=== PATIENT | female | born 1975 | race Caucasian/White ===

== ENCOUNTER 2022-05-06 03:30 | Emergency (ER) | payer OTHER ==
[~2022-05-06] VITALS: Ht 165.1 cm; Wt 74.3 kg
[2022-05-06 04:53] LABS: CLARITY URINE TURBID (CLEAR); COLOR URINE YELLOW (YELLOW); KETONES URINE NEGATIVE (NEGATIVE); LEUKOCYTE ESTERASE URINE 1+ (NEGATIVE); NITRITE URINE NEGATIVE (NEGATIVE); OCCULT BLOOD URINE 2+ (NEGATIVE); PH URINE 6.5 (4.5-8.0); PROTEIN URINE 2+ (NEGATIVE); SPECIFIC GRAVITY URINE 1.016 (1.005-1.030); UROBILINOGEN URINE 0.2 E.U./dL (0.2-1.0)
[2022-05-06] MEDS ORDERED: KETOROLAC 30MG/ML VIAL IV STA (05:32)
[2022-05-06 06:06] LABS: BASOPHILS % 0.8 % (0.0-2.0); EOSINOPHILS % 2.2 % (0.0-5.0); HEMATOCRIT. 29.3 % (36.0-48.0); HEMOGLOBIN. 8.9 g/dL (12.0-16.0); LYMPHOCYTES % 26.6 % (20.0-50.0); MEAN CORPUSCULAR HEMOGLOBIN 21.5 pg (28.0-32.0); MEAN CORPUSCULAR VOLUME 70.9 fL (81.0-99.0); MEAN PLATELET VOLUME 7.2 fl (7.4-10.4); NEUTROPHILS % 62.4 % (40.0-76.0); PLATELET 460 x1000/uL (130-400); RED BLOOD CELL COUNT 4.13 mill/uL (4.2-5.4); RED CELL DISTRIBUTION WIDTH 18.5 % (11.6-14.6)
[2022-05-06 06:12] LABS: CHLORIDE 103 mEq/L (98-107)
[2022-05-06 06:24] LABS: HCG SCREEN NEGATIVE
[2022-05-06 07:09] VITALS: BP 151/83
[2022-05-06] MEDS ORDERED: IBUP-2030 PO (09:02)
== END 2022-05-06 09:41 | disposition home or self-care (01) ==
LOC: ER 03:30
DX: D25.9 Leiomyoma of uterus, unspecified (principal); I12.9 Hypertensive chronic kidney disease with stage 1 through stage 4 chronic kidney disease, or unspecified chronic kidney disease; N18.9 Chronic kidney disease, unspecified; Z90.5 Acquired absence of kidney; Z88.8 Allergy status to other drugs, medicaments and biological substances
CPT/HCPCS: 36415; 74176; 76830; 76856; 80053; 81003; 83690; 84703; 85025; 87077; 87086; 87186; 96374; 99284; J1885

== ENCOUNTER 2022-06-09 22:06 | Emergency (ER) | payer MEDICAID, OTHER ==
[~2022-06-09] VITALS: Ht 165.1 cm; Wt 75.0 kg
[~2022-06-09 22:06] MED LIST: IBUP-2030 PO
[2022-06-09 23:28] LABS: CHLORIDE 109 mEq/L (98-107)
[2022-06-09 23:29] LABS: HCG SCREEN NEGATIVE
[2022-06-09 23:34] LABS: BASOPHILS % 0.5 % (0.0-2.0); EOSINOPHILS % 3.8 % (0.0-5.0); HEMATOCRIT. 26.1 % (36.0-48.0); LYMPHOCYTES % 32.4 % (20.0-50.0); MEAN CORPUSCULAR HEMOGLOBIN 21.2 pg (28.0-32.0); MEAN CORPUSCULAR VOLUME 69.5 fL (81.0-99.0); MEAN PLATELET VOLUME 7.5 fl (7.4-10.4); MONOCYTES % 9.1 % (2.0-8.0); NEUTROPHILS % 54.2 % (40.0-76.0); PLATELET 395 x1000/uL (130-400); RED BLOOD CELL COUNT 3.76 mill/uL (4.2-5.4); RED CELL DISTRIBUTION WIDTH 18.7 % (11.6-14.6)
[2022-06-10 00:19] LABS: PLATELET ESTIMATE NORMAL
[2022-06-10 03:46] VITALS: BP 167/89
[2022-06-10 04:20] LABS: CLARITY URINE CLOUDY (CLEAR); COLOR URINE YELLOW (YELLOW); KETONES URINE NEGATIVE (NEGATIVE); LEUKOCYTE ESTERASE URINE 1+ (NEGATIVE); NITRITE URINE NEGATIVE (NEGATIVE); OCCULT BLOOD URINE 3+ (NEGATIVE); PROTEIN URINE 3+ (NEGATIVE); UROBILINOGEN URINE 0.2 E.U./dL (0.2-1.0)
== END 2022-06-10 04:01 | disposition home or self-care (01) ==
LOC: ER 22:06
DX: K59.00 Constipation, unspecified (principal); N93.8 Other specified abnormal uterine and vaginal bleeding; D25.9 Leiomyoma of uterus, unspecified; I10 Essential (primary) hypertension; Z98.890 Other specified postprocedural states; Z90.5 Acquired absence of kidney; Z88.8 Allergy status to other drugs, medicaments and biological substances
CPT/HCPCS: 36415; 74176; 80053; 81003; 83880; 84703; 85025; 99284

== ENCOUNTER 2022-06-13 06:53 | Inpatient (IN) | payer OTHER ==
[~2022-06-13] VITALS: Ht 165.1 cm; Wt 73.7 kg
[2022-06-13] MEDS ORDERED: MORPHINE SULFATE 4 MG/ML CPJ (NOT FOR IM USE) IV STA (07:36)
[2022-06-13] MEDS ORDERED: KETOROLAC 30MG/ML VIAL IV STA (07:36)
[2022-06-13 08:46] LABS: CHLORIDE 109 mEq/L (98-107)
[2022-06-13 08:47] LABS: BASOPHILS % 0.3 % (0.0-2.0); EOSINOPHILS % 1.4 % (0.0-5.0); HEMATOCRIT. 29.1 % (36.0-48.0); HEMOGLOBIN. 8.6 g/dL (12.0-16.0); INR 0.9; LYMPHOCYTES % 10.6 % (20.0-50.0); MEAN CORPUSCULAR HEMOGLOBIN 20.9 pg (28.0-32.0); MEAN CORPUSCULAR VOLUME 70.3 fL (81.0-99.0); MEAN PLATELET VOLUME 7.8 fl (7.4-10.4); MONOCYTES % 5.2 % (2.0-8.0); NEUTROPHILS % 82.5 % (40.0-76.0); PLATELET 481 x1000/uL (130-400); PROTHROMBIN TIME 9.3 sec (9.6-11.0); RED BLOOD CELL COUNT 4.14 mill/uL (4.2-5.4); RED CELL DISTRIBUTION WIDTH 19.3 % (11.6-14.6)
[2022-06-13 08:50] LABS: CLARITY URINE CLEAR (CLEAR); COLOR URINE YELLOW (YELLOW); KETONES URINE TRACE (NEGATIVE); LEUKOCYTE ESTERASE URINE NEGATIVE (NEGATIVE); NITRITE URINE NEGATIVE (NEGATIVE); OCCULT BLOOD URINE 3+ (NEGATIVE); PROTEIN URINE 1+ (NEGATIVE); SPECIFIC GRAVITY URINE 1.024 (1.005-1.030); UROBILINOGEN URINE 0.2 E.U./dL (0.2-1.0)
[2022-06-13 09:00] LABS: HCG SCREEN NEGATIVE
[2022-06-13] MEDS ORDERED: MORPHINE SULFATE 4 MG/ML CPJ (NOT FOR IM USE) IV ONE (09:30)
[2022-06-13] MEDS ORDERED: HYDROCODONE/ACETAMINOPHEN 5/325MG TABLET PO PRN (14:45)
[2022-06-13] MEDS ORDERED: NALOXONE HCL 0.4MG/ML VIAL IV PRN (14:45)
[2022-06-13] MEDS ORDERED: CLONIDINE 0.1MG TABLET PO PRN (14:45)
[2022-06-13] MEDS ORDERED: DOCUSATE SODIUM 100MG CAPSULE PO PRN (14:45)
[2022-06-13] MEDS ORDERED: ONDANSETRON HCL 4MG/2ML INJ IV PRN (14:45)
[2022-06-13] MEDS ORDERED: ACETAMINOPHEN 325MG TABLET PO PRN ×2 (14:45)
[2022-06-13] MEDS ORDERED: LORAZEPAM 0.5MG TABLET PO PRN (14:45)
[2022-06-13] MEDS ORDERED: IPRATROPIUM/ALBUTEROL 0.5-3(2.5)MG/3ML NEB HHN PRN (14:45)
[2022-06-13] MEDS ORDERED: PIPERACILLIN/TAZ 3.375G PREMIX 50 ML IV NR (15:00)
[2022-06-13] MEDS: MORPHINE SULFATE 2 MG/ML CPJ (NOT FOR IM USE) IV PRN ×2 (19:12→23:52)
[2022-06-13] MEDS: SODIUM CHLORIDE 0.9% 1,000 ML IV SCH (20:36)
[2022-06-13 23:57] VITALS: BP 138/81
[2022-06-14] VITALS (10 sets, daily range): BP systolic 117–138; BP diastolic 58–83
[2022-06-14] MEDS: PIPERACILLIN/TAZOBACTAM 3.375 G in DEXTROSE 5% WATER 50 ML IV SCH ×2 (00:51→06:09)
[2022-06-14] MEDS: SODIUM CHLORIDE 0.9% 1,000 ML IV SCH ×2 (00:51→12:59)
[2022-06-14] MEDS ORDERED: METO-385 MT (01:41)
[2022-06-14] MEDS: MORPHINE SULFATE 2 MG/ML CPJ (NOT FOR IM USE) IV PRN ×4 (03:28→17:11)
[2022-06-14 06:13] LABS: BASOPHILS % 0.3 % (0.0-2.0); HEMATOCRIT. 21.8 % (36.0-48.0); LYMPHOCYTES % 22.9 % (20.0-50.0); MEAN CORPUSCULAR HEMOGLOBIN 21.3 pg (28.0-32.0); MEAN CORPUSCULAR VOLUME 69.3 fL (81.0-99.0); MEAN PLATELET VOLUME 7.6 fl (7.4-10.4); MONOCYTES % 7.6 % (2.0-8.0); NEUTROPHILS % 65.2 % (40.0-76.0); PLATELET 393 x1000/uL (130-400); RED BLOOD CELL COUNT 3.14 mill/uL (4.2-5.4); RED CELL DISTRIBUTION WIDTH 19.1 % (11.6-14.6)
[2022-06-14 06:38] LABS: HEMOGLOBIN. 6.7 g/dL (12.0-16.0)
[2022-06-14 07:36] LABS: FOLIC ACID (FOLATE) SERUM 8.2 ng/mL (>5.38)
[2022-06-14 07:55] LABS: TOTAL IRON BINDING CAPACITY 403 ug/dL (250-450)
[2022-06-14] MEDS ORDERED: PANTOPRAZOLE SODIUM 40 MG/VIAL IV SCH (09:00)
[2022-06-14 10:08] LABS: PLATELET ESTIMATE NORMAL
[2022-06-14 12:18] LABS: *BARBITURATES SCREEN URINE NEGATIVE (NEGATIVE); *BENZODIAZEPINES SCREEN URINE NEGATIVE (NEGATIVE); CANNABINOID URINE SCREEN NEGATIVE (NEGATIVE); METHADONE URINE SCREEN NEGATIVE (NEGATIVE); OPIATES URINE SCREEN NEGATIVE (NEGATIVE); PHENCYCLIDINE URINE SCREEN NEGATIVE (NEGATIVE)
[2022-06-14] MEDS ORDERED: CYANOCOBALAMIN 1000MCG/ML VIAL IM SCH (13:00)
[2022-06-14] MEDS ORDERED: IRON SUCROSE COMPLEX 100 MG/5 ML ML IV SCH (13:00)
[2022-06-14 13:17] LABS: *AMPHETAMINES SCREEN URINE PRESUMTIVE POSITIVE (NEGATIVE)
[2022-06-14 13:18] LABS: *COCAINE SCREEN URINE PRESUMTIVE POSITIVE (NEGATIVE)
[2022-06-14] MEDS ORDERED: PIPERACILLIN/TAZOBACTAM 3.375 G in DEXTROSE 5% WATER 50 ML IV SCH (16:00)
== END 2022-06-14 20:45 | disposition left against medical advice (07) | DRG 249 ==
LOC: ER 07:36 → 7WST 12:18 → EDBEDREQSVC 16:03 → ENRESERV 21:11
PROVIDERS: ADMIT Internal Medicine; ATTEND Internal Medicine
PROC: 30233N1 Transfusion of Nonautologous Red Blood Cells into Peripheral Vein, Percutaneous Approach (ICD-10-PCS; principal; 2022-06-14)
DX: K52.9 Noninfective gastroenteritis and colitis, unspecified (principal); D25.9 Leiomyoma of uterus, unspecified; D50.9 Iron deficiency anemia, unspecified; E53.8 Deficiency of other specified B group vitamins; F14.10 Cocaine abuse, uncomplicated; N20.0 Calculus of kidney; R31.9 Hematuria, unspecified; K57.30 Diverticulosis of large intestine without perforation or abscess without bleeding; F15.10 Other stimulant abuse, uncomplicated; I12.9 Hypertensive chronic kidney disease with stage 1 through stage 4 chronic kidney disease, or unspecified chronic kidney disease; N18.30 Chronic kidney disease, stage 3 unspecified; Z53.29 Procedure and treatment not carried out because of patient's decision for other reasons; Z90.5 Acquired absence of kidney; Z72.0 Tobacco use; Z88.8 Allergy status to other drugs, medicaments and biological substances; Z98.891 History of uterine scar from previous surgery; R80.9 Proteinuria, unspecified
CPT/HCPCS: 36415; 74176; 80048; 80053; 80305; 81003; 82607; 82728; 82746; 83540; 83550; 84703; 85025; 85044; 86850; 86900; 86920; 99285; C9113; J1885; J2270; J2405; J2543; J3420; J7060; P9016

== ENCOUNTER 2022-06-16 04:29 | Emergency (ER) | payer OTHER ==
[~2022-06-16] VITALS: Ht 165.1 cm; Wt 74.8 kg
[~2022-06-16 04:29] MED LIST changes: +METO-385 MT
[2022-06-16 04:45] VITALS: BP 150/90
== END 2022-06-16 09:11 | disposition left against medical advice (07) ==
LOC: ER 04:29
DX: Z53.21 Procedure and treatment not carried out due to patient leaving prior to being seen by health care provider (principal)

== ENCOUNTER 2022-09-10 20:14 | Emergency (ER) | payer OTHER ==
[~2022-09-10] VITALS: Ht 165.1 cm; Wt 75.0 kg
[2022-09-10] MEDS ORDERED: HYDROCODONE/ACETAMINOPHEN 5/325MG TABLET PO ONE (21:15)
[2022-09-10 21:56] LABS: BASOPHILS % 0.6 % (0.0-2.0); EOSINOPHILS % 0.9 % (0.0-5.0); HEMATOCRIT. 32.2 % (36.0-48.0); HEMOGLOBIN. 9.8 g/dL (12.0-16.0); LYMPHOCYTES % 19.7 % (20.0-50.0); MEAN CORPUSCULAR HEMOGLOBIN 22.9 pg (28.0-32.0); MEAN PLATELET VOLUME 7.3 fl (7.4-10.4); MONOCYTES % 4.5 % (2.0-8.0); NEUTROPHILS % 74.3 % (40.0-76.0); PLATELET 538 x1000/uL (130-400); RED BLOOD CELL COUNT 4.29 mill/uL (4.2-5.4); RED CELL DISTRIBUTION WIDTH 19.7 % (11.6-14.6)
[2022-09-10 22:05] LABS: CHLORIDE 106 mEq/L (98-107)
[2022-09-10 22:14] LABS: B-HCG QUANTITATIVE < 1 mIU/mL (<3)
[2022-09-10] MEDS ORDERED: ACET-2708 MT (23:56)
[2022-09-11 00:06] VITALS: BP 124/78
== END 2022-09-11 00:10 | disposition home or self-care (01) ==
LOC: ER 20:14
DX: D25.9 Leiomyoma of uterus, unspecified (principal); D63.1 Anemia in chronic kidney disease; R10.31 Right lower quadrant pain; I12.9 Hypertensive chronic kidney disease with stage 1 through stage 4 chronic kidney disease, or unspecified chronic kidney disease; N18.9 Chronic kidney disease, unspecified; F17.210 Nicotine dependence, cigarettes, uncomplicated; Z90.5 Acquired absence of kidney; Z88.8 Allergy status to other drugs, medicaments and biological substances
CPT/HCPCS: 36415; 74176; 76830; 76856; 80053; 81025; 84702; 85025; 86850; 86900; 99285

== ENCOUNTER 2022-10-17 13:22 | Emergency (ER) | payer MEDICAID, OTHER ==
[~2022-10-17] VITALS: Ht 172.7 cm; Wt 79.0 kg
[~2022-10-17 13:22] MED LIST changes: +ACET-2708 MT
[2022-10-17 13:37] VITALS: BP 121/57
[2022-10-17] MEDS ORDERED: ACETAMINOPHEN 325MG TABLET PO STA (13:53)
[2022-10-17] MEDS ORDERED: CYCLOBENZAPRINE 10MG TABLET PO ONE (17:00)
[2022-10-17] MEDS ORDERED: KETOROLAC 30MG/ML VIAL IV ONE (17:00)
[2022-10-17] MEDS ORDERED: KETOROLAC 60MG/2ML VIAL IM ONE (17:15)
[2022-10-17] MEDS ORDERED: NAPR-1176 MT (17:29)
[2022-10-17] MEDS ORDERED: CYCL10TA21 MT (17:29)
[2022-10-17] MEDS ORDERED: LIDOCAINE 5% PATCH TOP SCH (18:00)
[2022-10-17] MEDS ORDERED: HYDROCODONE/ACETAMINOPHEN 5/325MG TABLET PO ONE (18:00)
== END 2022-10-17 18:17 | disposition home or self-care (01) ==
LOC: ER 13:22
DX: M54.50 Low back pain, unspecified (principal); I10 Essential (primary) hypertension; Z79.899 Other long term (current) drug therapy
CPT/HCPCS: 96372; 99284; J1885

== ENCOUNTER 2023-05-14 16:29 | Emergency (ER) | payer MEDICAID, OTHER ==
[~2023-05-14] VITALS: Ht 165.1 cm; Wt 77.0 kg
[~2023-05-14 16:29] MED LIST changes: +CYCL10TA21 MT; +NAPR-1176 MT
[2023-05-14 16:37] VITALS: O2SAT 100
[2023-05-14 17:08] LABS: BASOPHILS % 0.5 % (0.0-2.0); EOSINOPHILS % 2.7 % (0.0-5.0); LYMPHOCYTES % 28.5 % (20.0-50.0); MEAN CORPUSCULAR HEMOGLOBIN 21.3 pg (28.0-32.0); MEAN CORPUSCULAR VOLUME 68.4 fL (81.0-99.0); MEAN PLATELET VOLUME 7.1 fl (7.4-10.4); MONOCYTES % 7.6 % (2.0-8.0); NEUTROPHILS % 60.7 % (40.0-76.0); PLATELET 350 x1000/uL (130-400); RED BLOOD CELL COUNT 2.99 mill/uL (4.2-5.4)
[2023-05-14 17:11] LABS: HEMOGLOBIN. 6.4 g/dL (12.0-16.0)
[2023-05-14 17:12] LABS: HEMATOCRIT. 20.5 % (36.0-48.0)
[2023-05-14 17:16] LABS: CHLORIDE 105 mEq/L (98-107)
[2023-05-14 18:03] LABS: PLATELET ESTIMATE NORMAL
[2023-05-14] MEDS ORDERED: MORPHINE SULFATE 4 MG/ML CPJ (NOT FOR IM USE) IV ONE (18:15)
[2023-05-14] MEDS ORDERED: ONDANSETRON HCL 4MG/2ML INJ IV PRN (20:45)
[2023-05-14] MEDS ORDERED: GUAIFENESIN 200MG/10ML SUGAR FREE UDC PO PRN (20:45)
[2023-05-14] MEDS ORDERED: DOCUSATE SODIUM 100MG CAPSULE PO PRN (20:45)
[2023-05-14] MEDS ORDERED: SODIUM CHLORIDE 0.9% 1,000 ML IV SCH (20:45)
[2023-05-14] MEDS ORDERED: CLONIDINE 0.1MG TABLET PO PRN (20:45)
[2023-05-14] MEDS ORDERED: ACETAMINOPHEN 325MG TABLET PO PRN ×2 (20:45)
[2023-05-14] MEDS ORDERED: HYDROCODONE/ACETAMINOPHEN 5/325MG TABLET PO PRN (20:45)
[2023-05-14] MEDS ORDERED: MAGNESIUM/ALUMINUM HYDROXIDE/SIMETHICONE 30ML UDC PO PRN (20:45)
[2023-05-14] MEDS ORDERED: IPRATROPIUM/ALBUTEROL 0.5-3(2.5)MG/3ML NEB HHN PRN (20:45)
[2023-05-14 21:13] LABS: TOTAL IRON BINDING CAPACITY 489 ug/dL (250-450)
[2023-05-14 23:15] VITALS: BP 146/78; PULSE 94; RESP 20; TEMP 98.2
== END 2023-05-14 23:52 | disposition left against medical advice (07) ==
LOC: ER 16:53 → EDBEDREQSVC 20:45 → EDBEDREQTM 20:45 → EDBEDREQ 20:45 → ENRESERV 22:57 → ER 23:52 → CANBEDREQ 05-15 00:30
DX: N92.0 Excessive and frequent menstruation with regular cycle (principal); I10 Essential (primary) hypertension; D62 Acute posthemorrhagic anemia; D25.9 Leiomyoma of uterus, unspecified; Z20.822 Contact with and (suspected) exposure to COVID-19; Z88.8 Allergy status to other drugs, medicaments and biological substances; Z98.890 Other specified postprocedural states
CPT/HCPCS: 99291; 96374; 76856; 87426; 80053; 83540; 83550; 85025; 85044; 86850; 86900; 86901; 86920; 36415; J2270; C9803; 36430; P9016

== ENCOUNTER 2023-05-17 05:00 | Emergency (ER) | payer MEDICAID, OTHER ==
[~2023-05-17] VITALS: Ht 165.1 cm; Wt 77.6 kg
[2023-05-17 05:21] VITALS: BP 161/71; PULSE 100; RESP 18; TEMP 98.7; O2SAT 100
[2023-05-17 05:57] LABS: BASOPHILS % 0.7 % (0.0-2.0); EOSINOPHILS % 3.7 % (0.0-5.0); LYMPHOCYTES % 29.3 % (20.0-50.0); MEAN CORPUSCULAR VOLUME 71.1 fL (81.0-99.0); MONOCYTES % 8.4 % (2.0-8.0); NEUTROPHILS % 57.9 % (40.0-76.0); PLATELET 361 x1000/uL (130-400); RED BLOOD CELL COUNT 2.94 mill/uL (4.2-5.4)
[2023-05-17 06:06] LABS: CHLORIDE 111 mEq/L (98-107)
[2023-05-17 06:09] LABS: HEMATOCRIT. 20.9 % (36.0-48.0); HEMOGLOBIN. 6.5 g/dL (12.0-16.0)
[2023-05-17 08:19] LABS: INR 0.9; PARTIAL THROMBOPLASTIN TIME 23.2 sec (23.4-31.0); PROTHROMBIN TIME 9.5 sec (9.6-11.0)
[2023-05-17] MEDS ORDERED: TRANEXAMIC ACID 1,000 MG in SODIUM CHLORIDE 0.9% 100 ML IV NR (08:30)
== END 2023-05-17 11:21 | disposition left against medical advice (07) ==
LOC: ER 05:14 → CANBEDREQ 05-18 20:32
DX: N93.8 Other specified abnormal uterine and vaginal bleeding (principal); D64.9 Anemia, unspecified; I10 Essential (primary) hypertension; Z98.890 Other specified postprocedural states; Z79.899 Other long term (current) drug therapy
CPT/HCPCS: 80053; 81025; 85025; 85610; 85730; 86850; 86900; 86901; 36415; 99291; Z7610; J7050

== ENCOUNTER 2024-08-15 18:19 | Emergency (ER) | payer MEDICAID ==
[~2024-08-15] VITALS: Ht 165.1 cm; Wt 73.0 kg
[2024-08-15 18:20] VITALS: O2SAT 98
[2024-08-15 18:37] VITALS: BP 165/106; PULSE 98; RESP 18; TEMP 98; O2SAT 100
[2024-08-15 19:00] LABS: CLARITY URINE CLOUDY (CLEAR); COLOR URINE YELLOW (YELLOW); GLUCOSE URINE NEGATIVE (NEGATIVE); KETONES URINE NEGATIVE (NEGATIVE); LEUKOCYTE ESTERASE URINE 1+ (NEGATIVE); NITRITE URINE POSITIVE (NEGATIVE); OCCULT BLOOD URINE NEGATIVE (NEGATIVE); PH URINE 5.5 (4.5-8.0); PROTEIN URINE 2+ (NEGATIVE); SPECIFIC GRAVITY URINE 1.019 (1.005-1.030)
[2024-08-15 19:17] LABS: BACTERIA URINE 1+; RBC URINE 0-2 /hpf (0-2); SQUAMOUS EPITHELIAL CELL URINE 2+ /lpf (RARE/1+)
== END 2024-08-16 00:39 | disposition left against medical advice (07) ==
LOC: ER 18:19
DX: R30.0 Dysuria (principal); Z53.21 Procedure and treatment not carried out due to patient leaving prior to being seen by health care provider
CPT/HCPCS: 81003; 81025; 87077; 87186